=== PATIENT | male | born 1960 | race Caucasian/White ===

== ENCOUNTER 2021-08-26 10:31 | Inpatient (IN) ==
[2021-08-26] MEDS ORDERED: VANCOMYCIN INJ 1,500 MG in SODIUM CHLORIDE 0.9% 250 ML IV STA (11:08)
[2021-08-26] MEDS ORDERED: MEROPENEM 1,000 MG in SODIUM CHLORIDE 0.9% 100 ML IV STA (11:08)
[2021-08-26] MEDS ORDERED: VANCOMYCIN INJ 1,500 MG in SODIUM CHLORIDE 0.9% 500 ML IV STA (11:44)
[2021-08-26 11:48] LABS: Basophils # 0.1 10*3/uL (0.0-0.2); Basophils % 0.4 % (0.0-0.8); Eosinophils # 0.1 10*3/uL (0.0-0.87); Eosinophils % 0.2 % (0.00-10.9); Hematocrit 41.8 VOL% (42.0-52.0); Hemoglobin 14.1 GM/DL (14.0-18.0); Immature Granulocytes % 1.8 %; Immature Granulocytes Absolute 0.47 #; Lymphocytes # 1.9 10*3/uL (1.4-4.0); Lymphocytes % 7.1 % (21.2-54.2); Mean Corpuscular HGB Conc 33.7 GM/DL (32-36); Mean Corpuscular Volume 87.8 FL (87-102); Mean Platelet Volume 10.5 FL (9.6-12.0); Monocytes % 4.2 % (1.7-12.7); Neutrophils % 86.3 % (38.7-73.9); Platelet Count 513 T/CUMM (130-400); Red Blood Count 4.76 MC/CUMM (3.8-5.5); Red Cell Distribution Width 13.2 % (9.3-17.3); White Blood Count 26.1 T/CUMM (4-12)
[2021-08-26 12:07] LABS: Albumin 2.2 G/DL (3.4-5.0); Bilirubin,Total 1.6 MG/DL (0.20-1.00); Calcium 9.5 MG/DL (8.5-10.1); Osmolality,Calculated 266.6 MOS/KG (273-304); Potassium 3.3 MMOL/L (3.5-5.1); Total Protein 8.8 G/DL (6.4-8.2)
[2021-08-26 12:16] LABS: Eosinophils 1 % (0-10); Hypochromasia 1+; Lymphocytes 7 % (20-55); Polychromasia Slight; Reactive Lymphocytes Few; Segmented Neutrophils 88 % (50-85); Total Cells Counted 100
[2021-08-26] MEDS ORDERED: INSULIN LISPRO 100 UNIT/ML SUBCUT STA (12:16)
[2021-08-26 12:17] LABS: Platelet Estimate Increased
[2021-08-26 13:25] LABS: Bilirubin,Urine Negative (Negative); Blood, Urine Negative (Negative); Glucose,Urine (UA) >=500 mg/dL (Negative); Ketones,Urine 20 mg/dL (Negative); Mucus,Urine Occasional /LPF (Occasional); Nitrite,Urine Negative (Negative); Protein,Urine Negative; Urine Appearance CLEAR (Clear); Urine Color Yellow (Yellow); Urine Specific Gravity 1.027 (1.001-1.035)
[2021-08-26] MEDS ORDERED: ONDANSETRON 4 MG/2 ML VIAL IV PRN (13:41)
[2021-08-26] MEDS ORDERED: GLUCAGON 1 MG VIAL IM PRN (13:41)
[2021-08-26] MEDS ORDERED: DEXTROSE 50% 25 GM/50 ML VIAL IV PRN (13:41)
[2021-08-26] MEDS ORDERED: BISACODYL 5 MG TABLET PO PRN (13:41)
[2021-08-26] MEDS ORDERED: ACETAMINOPHEN 325 MG TABLET PO PRN (13:41)
[2021-08-26] MEDS ORDERED: NICOTINE 21 MG/24 HR PATCH TRANSDERM PRN (15:40)
[2021-08-26] MEDS: PIPERACILLIN/TAZOBACTAM 3,375 MG in SODIUM CHLORIDE 0.9% 100 ML IV SCH ×2 (16:08→22:56)
[2021-08-26] MEDS: SODIUM CHLOR 0.9% KCL 40 MEQ 40 MEQ/1,000 ML BAG IV SCH (17:12)
[2021-08-26 17:28] LABS: Hepatitis B Core IgM Quant 0.09 Index; Hepatitis B Surface Ag Quant < 0.10 Index; Hepatitis B Surface Ag Result Non-Reactive (NonReactive); Hepatitis C Virus Ab Quant 1.79 Index
[2021-08-26] MEDS ORDERED: POTASSIUM CHLORIDE 20 MEQ TABLET PO STA (19:52)
[2021-08-26] MEDS ORDERED: MAGNESIUM SULF RIDER 2 GM/50 ML PREMIX IV ONE (19:53)
[2021-08-26] MEDS ORDERED: INSULIN GLARGINE 100 UNIT/ML SUBCUT SCH (21:00)
[2021-08-26] MEDS: INSULIN GLARGINE 100 UNIT/ML SUBCUT SCH (22:01)
[2021-08-27] MEDS: PIPERACILLIN/TAZOBACTAM 3,375 MG in SODIUM CHLORIDE 0.9% 100 ML IV SCH ×3 (05:43→22:21)
[2021-08-27 06:03] LABS: Basophils # 0.1 10*3/uL (0.0-0.2); Basophils % 0.2 % (0.0-0.8); Eosinophils # 0.1 10*3/uL (0.0-0.87); Eosinophils % 0.3 % (0.00-10.9); Hematocrit 32.5 VOL% (42.0-52.0); Immature Granulocytes % 1.7 %; Immature Granulocytes Absolute 0.47 #; Lymphocytes # 2.5 10*3/uL (1.4-4.0); Lymphocytes % 8.8 % (21.2-54.2); Mean Corpuscular HGB Conc 33.8 GM/DL (32-36); Mean Corpuscular Volume 89.3 FL (87-102); Mean Platelet Volume 10.5 FL (9.6-12.0); Monocytes % 5.7 % (1.7-12.7); Neutrophils % 83.3 % (38.7-73.9); Platelet Count 515 T/CUMM (130-400); Red Blood Count 3.64 MC/CUMM (3.8-5.5); Red Cell Distribution Width 13.3 % (9.3-17.3); White Blood Count 28.2 T/CUMM (4-12)
[2021-08-27 06:33] LABS: Calcium 8.4 MG/DL (8.5-10.1); Osmolality,Calculated 267.9 MOS/KG (273-304); Potassium 3.4 MMOL/L (3.5-5.1)
[2021-08-27 06:37] LABS: Band Neutrophils 9 % (0-10); Hypochromasia 1+; Lymphocytes 9 % (20-55); Segmented Neutrophils 78 % (50-85); Total Cells Counted 100
[2021-08-27 06:38] LABS: Microcytosis Slight; Polychromasia Slight
[2021-08-27] MEDS: SODIUM CHLOR 0.9% KCL 40 MEQ 40 MEQ/1,000 ML BAG IV SCH ×3 (06:38→13:18)
[2021-08-27] MEDS ORDERED: LACTATED RINGERS 1,000 ML IV SCH (09:30)
[2021-08-27] MEDS ORDERED: ONDANSETRON 4 MG/2 ML VIAL ONE (09:33)
[2021-08-27] MEDS ORDERED: LIDOCAINE 2% 5 ML VIAL ONE (09:33)
[2021-08-27] MEDS ORDERED: METOCLOPRAMIDE 10 MG/2 ML VIAL ONE (09:33)
[2021-08-27] MEDS ORDERED: propofoL 200 MG/20 ML VIAL IV ONE (09:33)
[2021-08-27] MEDS: PANTOPRAZOLE 40 MG TABLET PO SCH (09:54)
[2021-08-27] MEDS: SODIUM HYPOCHLORITE 0.25% IRRIG 473 ML BOTTLE TOP SCH (09:55)
[2021-08-27] MEDS ORDERED: KETOROLAC 30 MG/1 ML VIAL ONE (09:57)
[2021-08-27] MEDS ORDERED: HYDROmorphone 2 MG/1 ML VIAL ONE (09:58)
[2021-08-27] MEDS ORDERED: CALCIUM CHLORIDE 1,000 MG/10 ML VIAL IV ONE (10:17)
[2021-08-27] MEDS ORDERED: SEVOFLURANE 1 UNIT/15 MINUTE INH ONE (10:17)
[2021-08-27] MEDS ORDERED: LACTATED RINGERS 1,000 ML IV ONE (10:27)
[2021-08-27 10:41] LABS: HIV Antigen/Antibody Result Nonreactive (Nonreactive)
[2021-08-27] MEDS ORDERED: PROMETHAZINE INJ 25 MG in SODIUM CHLORIDE 0.9% 50 ML IV PRN (10:53)
[2021-08-27] MEDS ORDERED: ONDANSETRON 4 MG/2 ML VIAL IV PRN (10:53)
[2021-08-27] MEDS ORDERED: HYDROmorphone 2 MG/1 ML VIAL IV PRN (10:53)
[2021-08-27] MEDS ORDERED: MEPERIDINE 25 MG/1 ML VIAL IV PRN (10:53)
[2021-08-27] MEDS ORDERED: diphenhydrAMINE 50 MG/1 ML VIAL IV PRN (10:53)
[2021-08-27] MEDS: INSULIN GLARGINE 100 UNIT/ML SUBCUT SCH (21:03)
[2021-08-28] MEDS: SODIUM CHLOR 0.9% KCL 40 MEQ 40 MEQ/1,000 ML BAG IV SCH ×4 (05:23→23:48)
[2021-08-28] MEDS: PIPERACILLIN/TAZOBACTAM 3,375 MG in SODIUM CHLORIDE 0.9% 100 ML IV SCH ×3 (05:50→21:34)
[2021-08-28 06:19] LABS: Basophils # 0.1 10*3/uL (0.0-0.2); Basophils % 0.3 % (0.0-0.8); Eosinophils # 0.2 10*3/uL (0.0-0.87); Hematocrit 34.3 VOL% (42.0-52.0); Hemoglobin 11.3 GM/DL (14.0-18.0); Immature Granulocytes % 1.9 %; Immature Granulocytes Absolute 0.33 #; Lymphocytes # 2.4 10*3/uL (1.4-4.0); Lymphocytes % 14.3 % (21.2-54.2); Mean Corpuscular HGB Conc 32.9 GM/DL (32-36); Mean Corpuscular Volume 90.7 FL (87-102); Monocytes % 4.6 % (1.7-12.7); NRBC # 0.02 10*3/uL; Neutrophils % 77.9 % (38.7-73.9); Platelet Count 532 T/CUMM (130-400); Red Blood Count 3.78 MC/CUMM (3.8-5.5); Red Cell Distribution Width 13.9 % (9.3-17.3)
[2021-08-28 06:39] LABS: Albumin 1.5 G/DL (3.4-5.0); Osmolality,Calculated 276.2 MOS/KG (273-304); Potassium 3.7 MMOL/L (3.5-5.1); Total Protein 6.6 G/DL (6.4-8.2)
[2021-08-28] MEDS: PANTOPRAZOLE 40 MG TABLET PO SCH (08:13)
[2021-08-28] MEDS: SODIUM HYPOCHLORITE 0.25% IRRIG 473 ML BOTTLE TOP SCH (08:14)
[2021-08-28] MEDS: HYDROmorphone 2 MG/1 ML VIAL IV PRN ×3 (09:57→23:48)
[2021-08-28] MEDS: INSULIN LISPRO 100 UNIT/ML SUBCUT SCH ×3 (12:01→20:23)
[2021-08-28] MEDS: INSULIN GLARGINE 100 UNIT/ML SUBCUT SCH (20:22)
[2021-08-29] MEDS: HYDROmorphone 2 MG/1 ML VIAL IV PRN ×4 (04:58→20:46)
[2021-08-29] MEDS: PIPERACILLIN/TAZOBACTAM 3,375 MG in SODIUM CHLORIDE 0.9% 100 ML IV SCH ×2 (05:42→14:22)
[2021-08-29 06:53] LABS: Basophils # 0.1 10*3/uL (0.0-0.2); Basophils % 0.4 % (0.0-0.8); Eosinophils # 0.2 10*3/uL (0.0-0.87); Hematocrit 33.8 VOL% (42.0-52.0); Hemoglobin 10.9 GM/DL (14.0-18.0); Immature Granulocytes % 1.5 %; Immature Granulocytes Absolute 0.28 #; Lymphocytes # 3.1 10*3/uL (1.4-4.0); Mean Corpuscular HGB Conc 32.2 GM/DL (32-36); Mean Corpuscular Volume 93.1 FL (87-102); Mean Platelet Volume 10.5 FL (9.6-12.0); Monocytes % 4.9 % (1.7-12.7); NRBC # 0.02 10*3/uL; Neutrophils % 75.2 % (38.7-73.9); Platelet Count 536 T/CUMM (130-400); Red Blood Count 3.63 MC/CUMM (3.8-5.5); Red Cell Distribution Width 14.4 % (9.3-17.3); White Blood Count 18.3 T/CUMM (4-12)
[2021-08-29 07:13] LABS: Albumin 1.5 G/DL (3.4-5.0); Calcium 8.3 MG/DL (8.5-10.1); Osmolality,Calculated 263.4 MOS/KG (273-304); Potassium 4.2 MMOL/L (3.5-5.1); Total Protein 6.8 G/DL (6.4-8.2)
[2021-08-29 07:19] LABS: Hypochromasia 1+; Platelet Estimate Increased
[2021-08-29] MEDS: SODIUM CHLOR 0.9% KCL 40 MEQ 40 MEQ/1,000 ML BAG IV SCH ×3 (08:52→22:55)
[2021-08-29] MEDS: PANTOPRAZOLE 40 MG TABLET PO SCH (08:52)
[2021-08-29] MEDS: SODIUM HYPOCHLORITE 0.25% IRRIG 473 ML BOTTLE TOP SCH (08:53)
[2021-08-29] MEDS: INSULIN LISPRO 100 UNIT/ML SUBCUT SCH ×4 (08:53→20:46)
[2021-08-29] MEDS: KETOROLAC 30 MG/1 ML VIAL IV PRN (11:53)
[2021-08-29] MEDS: cefTRIAXone 1,000 MG in SODIUM CHLORIDE 0.9% 100 ML IV SCH (15:08)
[2021-08-29] MEDS: POLYETHYLENE GLYCOL POWDER 17 GM PACK PO SCH (20:41)
[2021-08-29] MEDS: DOCUSATE SODIUM 100 MG CAPSULE PO SCH (20:42)
[2021-08-29] MEDS: SENNA 8.6 MG TABLET PO SCH (20:42)
[2021-08-29] MEDS: INSULIN GLARGINE 100 UNIT/ML SUBCUT SCH (20:43)
[2021-08-30] MEDS: KETOROLAC 30 MG/1 ML VIAL IV PRN ×2 (02:12→15:24)
[2021-08-30] MEDS: HYDROmorphone 2 MG/1 ML VIAL IV PRN ×4 (03:35→20:46)
[2021-08-30 06:13] LABS: Basophils # 0.1 10*3/uL (0.0-0.2); Basophils % 0.8 % (0.0-0.8); Eosinophils # 0.2 10*3/uL (0.0-0.87); Eosinophils % 1.5 % (0.00-10.9); Hematocrit 31.9 VOL% (42.0-52.0); Hemoglobin 10.5 GM/DL (14.0-18.0); Immature Granulocytes Absolute 0.11 #; Lymphocytes # 2.2 10*3/uL (1.4-4.0); Lymphocytes % 18.6 % (21.2-54.2); Mean Corpuscular HGB Conc 32.9 GM/DL (32-36); Monocytes % 4.7 % (1.7-12.7); Neutrophils % 73.4 % (38.7-73.9); Platelet Count 583 T/CUMM (130-400); Red Blood Count 3.43 MC/CUMM (3.8-5.5); Red Cell Distribution Width 14.6 % (9.3-17.3); White Blood Count 11.6 T/CUMM (4-12)
[2021-08-30 06:33] LABS: Albumin 1.4 G/DL (3.4-5.0); Bilirubin,Total 0.7 MG/DL (0.20-1.00); Calcium 8.3 MG/DL (8.5-10.1); Potassium 4.7 MMOL/L (3.5-5.1); Total Protein 6.3 G/DL (6.4-8.2)
[2021-08-30 06:48] LABS: Atypical Lymphocytes Few; Hypochromasia 1+; Platelet Estimate Increased
[2021-08-30] MEDS ORDERED: LACTATED RINGERS 1,000 ML IV SCH (08:00)
[2021-08-30] MEDS ORDERED: fentaNYL 100 MCG/2 ML VIAL ONE (08:12)
[2021-08-30] MEDS ORDERED: propofoL 200 MG/20 ML VIAL IV ONE (08:12)
[2021-08-30] MEDS ORDERED: MIDAZOLAM 2 MG/2 ML VIAL ONE (08:12)
[2021-08-30] MEDS ORDERED: LIDOCAINE 2% 5 ML VIAL ONE (08:12)
[2021-08-30] MEDS ORDERED: LIDOCAINE 1% 20 ML VIAL ONE (08:20)
[2021-08-30] MEDS ORDERED: BUPIVACAINE MPF 0.25% 30 ML VIAL ONE (08:20)
[2021-08-30] MEDS: INSULIN LISPRO 100 UNIT/ML SUBCUT SCH ×4 (08:35→20:54)
[2021-08-30] MEDS ORDERED: PHENYLEPHRINE 1 MG/10 ML SYRINGE IV ONE (08:37)
[2021-08-30] MEDS ORDERED: SEVOFLURANE 1 UNIT/15 MINUTE INH ONE (08:38)
[2021-08-30] MEDS ORDERED: ONDANSETRON 4 MG/2 ML VIAL ONE (08:38)
[2021-08-30] MEDS ORDERED: HYDROmorphone 2 MG/1 ML VIAL IV PRN (09:24)
[2021-08-30] MEDS ORDERED: ONDANSETRON 4 MG/2 ML VIAL IV PRN (09:24)
[2021-08-30] MEDS: PANTOPRAZOLE 40 MG TABLET PO SCH (11:15)
[2021-08-30] MEDS: POLYETHYLENE GLYCOL POWDER 17 GM PACK PO SCH ×3 (11:15→21:06)
[2021-08-30] MEDS: DOCUSATE SODIUM 100 MG CAPSULE PO SCH ×2 (11:15→20:53)
[2021-08-30] MEDS: metroNIDAZOLE INJ 500 MG/100 ML PREMIX IV SCH ×2 (11:15→17:16)
[2021-08-30] MEDS: SODIUM HYPOCHLORITE 0.25% IRRIG 473 ML BOTTLE TOP SCH (11:22)
[2021-08-30] MEDS: cefTRIAXone 1,000 MG in SODIUM CHLORIDE 0.9% 100 ML IV SCH (15:24)
[2021-08-30] MEDS: SODIUM CHLOR 0.9% KCL 40 MEQ 40 MEQ/1,000 ML BAG IV SCH ×3 (20:49→21:53)
[2021-08-30] MEDS: SENNA 8.6 MG TABLET PO SCH (20:53)
[2021-08-30] MEDS: LACTULOSE 20 GM/30 ML UDCUP PO SCH ×2 (20:53→21:05)
[2021-08-30] MEDS: INSULIN GLARGINE 100 UNIT/ML SUBCUT SCH (20:54)
[2021-08-31] MEDS: KETOROLAC 30 MG/1 ML VIAL IV PRN ×2 (00:36→06:10)
[2021-08-31] MEDS: metroNIDAZOLE INJ 500 MG/100 ML PREMIX IV SCH ×3 (00:44→16:21)
[2021-08-31] MEDS: HYDROmorphone 2 MG/1 ML VIAL IV PRN ×5 (03:54→20:50)
[2021-08-31 05:51] LABS: Basophils % 0.3 % (0.0-0.8); Eosinophils # 0.2 10*3/uL (0.0-0.87); Eosinophils % 1.9 % (0.00-10.9); Hematocrit 35.1 VOL% (42.0-52.0); Hemoglobin 11.6 GM/DL (14.0-18.0); Immature Granulocytes Absolute 0.12 #; Lymphocytes # 2.3 10*3/uL (1.4-4.0); Lymphocytes % 20.2 % (21.2-54.2); Mean Corpuscular Volume 93.4 FL (87-102); Mean Platelet Volume 9.7 FL (9.6-12.0); Monocytes % 6.1 % (1.7-12.7); Neutrophils % 70.5 % (38.7-73.9); Platelet Count 645 T/CUMM (130-400); Red Blood Count 3.76 MC/CUMM (3.8-5.5); Red Cell Distribution Width 14.6 % (9.3-17.3); White Blood Count 11.6 T/CUMM (4-12)
[2021-08-31] MEDS: SODIUM CHLOR 0.9% KCL 40 MEQ 40 MEQ/1,000 ML BAG IV SCH ×3 (06:11→18:01)
[2021-08-31 06:21] LABS: Albumin 1.3 G/DL (3.4-5.0); Bilirubin,Total 0.7 MG/DL (0.20-1.00); Calcium 7.8 MG/DL (8.5-10.1); Osmolality,Calculated 270.1 MOS/KG (273-304); Potassium 4.7 MMOL/L (3.5-5.1); Total Protein 6.5 G/DL (6.4-8.2)
[2021-08-31] MEDS: PANTOPRAZOLE 40 MG TABLET PO SCH (08:41)
[2021-08-31] MEDS: LACTULOSE 20 GM/30 ML UDCUP PO SCH ×2 (08:41→21:14)
[2021-08-31] MEDS: DOCUSATE SODIUM 100 MG CAPSULE PO SCH ×2 (08:41→20:48)
[2021-08-31] MEDS: INSULIN LISPRO 100 UNIT/ML SUBCUT SCH ×4 (08:42→20:48)
[2021-08-31] MEDS: POLYETHYLENE GLYCOL POWDER 17 GM PACK PO SCH ×2 (08:42→21:14)
[2021-08-31] MEDS: SODIUM HYPOCHLORITE 0.25% IRRIG 473 ML BOTTLE TOP SCH (08:42)
[2021-08-31] MEDS: LINACLOTIDE 145 MCG CAPSULE PO SCH (08:42)
[2021-08-31 14:44] LABS: Basophils % 0.2 % (0.0-0.8); Eosinophils # 0.2 10*3/uL (0.0-0.87); Eosinophils % 1.8 % (0.00-10.9); Hematocrit 37.5 VOL% (42.0-52.0); Hemoglobin 11.6 GM/DL (14.0-18.0); Immature Granulocytes Absolute 0.12 #; Lymphocytes # 2.2 10*3/uL (1.4-4.0); Lymphocytes % 17.7 % (21.2-54.2); Mean Corpuscular HGB Conc 30.9 GM/DL (32-36); Mean Corpuscular Volume 96.9 FL (87-102); Mean Platelet Volume 11.1 FL (9.6-12.0); Monocytes % 5.5 % (1.7-12.7); Neutrophils % 73.8 % (38.7-73.9); Platelet Count 518 T/CUMM (130-400); Red Blood Count 3.87 MC/CUMM (3.8-5.5); White Blood Count 12.3 T/CUMM (4-12)
[2021-08-31] MEDS: cefTRIAXone 1,000 MG in SODIUM CHLORIDE 0.9% 100 ML IV SCH (15:46)
[2021-08-31] MEDS: SENNA 8.6 MG TABLET PO SCH (20:47)
[2021-08-31] MEDS: ZALEPLON 5 MG CAPSULE PO PRN (20:47)
[2021-08-31] MEDS: INSULIN GLARGINE 100 UNIT/ML SUBCUT SCH (20:48)
[2021-09-01] MEDS: metroNIDAZOLE INJ 500 MG/100 ML PREMIX IV SCH ×3 (00:39→16:56)
[2021-09-01] MEDS: HYDROmorphone 2 MG/1 ML VIAL IV PRN ×7 (00:47→20:23)
[2021-09-01] MEDS: SODIUM CHLOR 0.9% KCL 40 MEQ 40 MEQ/1,000 ML BAG IV SCH ×2 (00:49→07:56)
[2021-09-01 06:36] LABS: Calcium 8.5 MG/DL (8.5-10.1); Osmolality,Calculated 264.7 MOS/KG (273-304); Potassium 5.2 MMOL/L (3.5-5.1)
[2021-09-01 06:46] LABS: Hematocrit 37.7 VOL% (42.0-52.0); Hemoglobin 11.8 GM/DL (14.0-18.0)
[2021-09-01] MEDS: INSULIN LISPRO 100 UNIT/ML SUBCUT SCH ×4 (08:02→21:13)
[2021-09-01] MEDS: LINACLOTIDE 145 MCG CAPSULE PO SCH (08:03)
[2021-09-01] MEDS: SODIUM HYPOCHLORITE 0.25% IRRIG 473 ML BOTTLE TOP SCH (08:03)
[2021-09-01] MEDS: DOCUSATE SODIUM 100 MG CAPSULE PO SCH ×2 (08:03→21:35)
[2021-09-01] MEDS: LACTULOSE 20 GM/30 ML UDCUP PO SCH ×2 (08:03→21:35)
[2021-09-01] MEDS: PANTOPRAZOLE 40 MG TABLET PO SCH (08:03)
[2021-09-01] MEDS: SODIUM CHLORIDE 0.9% 1,000 ML IV SCH ×2 (08:03→23:41)
[2021-09-01] MEDS: POLYETHYLENE GLYCOL POWDER 17 GM PACK PO SCH ×2 (08:04→21:35)
[2021-09-01] MEDS: cefTRIAXone 1,000 MG in SODIUM CHLORIDE 0.9% 100 ML IV SCH (14:44)
[2021-09-01] MEDS: ZALEPLON 5 MG CAPSULE PO PRN (21:13)
[2021-09-01] MEDS: INSULIN GLARGINE 100 UNIT/ML SUBCUT SCH (21:13)
[2021-09-01] MEDS: SENNA 8.6 MG TABLET PO SCH (21:14)
[2021-09-02] MEDS: metroNIDAZOLE INJ 500 MG/100 ML PREMIX IV SCH ×3 (00:59→16:55)
[2021-09-02] MEDS: HYDROmorphone 2 MG/1 ML VIAL IV PRN ×5 (02:36→21:28)
[2021-09-02 05:43] LABS: Basophils # 0.1 10*3/uL (0.0-0.2); Basophils % 0.6 % (0.0-0.8); Eosinophils # 0.2 10*3/uL (0.0-0.87); Eosinophils % 1.6 % (0.00-10.9); Hematocrit 35.1 VOL% (42.0-52.0); Hemoglobin 11.1 GM/DL (14.0-18.0); Immature Granulocytes % 0.4 %; Immature Granulocytes Absolute 0.04 #; Lymphocytes # 2.5 10*3/uL (1.4-4.0); Lymphocytes % 25.5 % (21.2-54.2); Mean Corpuscular HGB Conc 31.6 GM/DL (32-36); Mean Corpuscular Volume 93.6 FL (87-102); Mean Platelet Volume 9.6 FL (9.6-12.0); Monocytes % 7.8 % (1.7-12.7); Neutrophils % 64.1 % (38.7-73.9); Platelet Count 774 T/CUMM (130-400); Red Blood Count 3.75 MC/CUMM (3.8-5.5); Red Cell Distribution Width 14.7 % (9.3-17.3); White Blood Count 9.7 T/CUMM (4-12)
[2021-09-02 06:04] LABS: Calcium 8.7 MG/DL (8.5-10.1); Osmolality,Calculated 267.4 MOS/KG (273-304); Potassium 4.3 MMOL/L (3.5-5.1)
[2021-09-02 06:16] LABS: Eosinophils 2 % (0-10); Lymphocytes 28 % (20-55); Platelet Estimate Increased; Segmented Neutrophils 65 % (50-85); Total Cells Counted 100
[2021-09-02 06:17] LABS: Hypochromasia Slight; Microcytosis Slight
[2021-09-02] MEDS: LINACLOTIDE 145 MCG CAPSULE PO SCH (07:46)
[2021-09-02] MEDS: INSULIN LISPRO 100 UNIT/ML SUBCUT SCH ×4 (07:46→22:45)
[2021-09-02] MEDS: SODIUM HYPOCHLORITE 0.25% IRRIG 473 ML BOTTLE TOP SCH (09:14)
[2021-09-02] MEDS: LACTULOSE 20 GM/30 ML UDCUP PO SCH ×2 (09:14→21:33)
[2021-09-02] MEDS: POLYETHYLENE GLYCOL POWDER 17 GM PACK PO SCH ×2 (09:14→21:33)
[2021-09-02] MEDS: DOCUSATE SODIUM 100 MG CAPSULE PO SCH ×2 (09:14→21:33)
[2021-09-02] MEDS: PANTOPRAZOLE 40 MG TABLET PO SCH (09:14)
[2021-09-02] MEDS: SODIUM CHLORIDE 0.9% 1,000 ML IV SCH (15:00)
[2021-09-02] MEDS: cefTRIAXone 1,000 MG in SODIUM CHLORIDE 0.9% 100 ML IV SCH (15:28)
[2021-09-02] MEDS: SENNA 8.6 MG TABLET PO SCH (21:28)
[2021-09-02] MEDS: INSULIN GLARGINE 100 UNIT/ML SUBCUT SCH (22:46)
[2021-09-03] MEDS: HYDROmorphone 2 MG/1 ML VIAL IV PRN ×7 (01:52→21:39)
[2021-09-03] MEDS: metroNIDAZOLE INJ 500 MG/100 ML PREMIX IV SCH ×3 (01:52→17:59)
[2021-09-03] MEDS: SODIUM CHLORIDE 0.9% 1,000 ML IV SCH ×3 (02:03→17:00)
[2021-09-03] MEDS: LINACLOTIDE 145 MCG CAPSULE PO SCH (07:34)
[2021-09-03] MEDS: INSULIN LISPRO 100 UNIT/ML SUBCUT SCH ×4 (07:34→21:39)
[2021-09-03] MEDS: POLYETHYLENE GLYCOL POWDER 17 GM PACK PO SCH ×2 (08:37→20:21)
[2021-09-03] MEDS: LACTULOSE 20 GM/30 ML UDCUP PO SCH ×2 (08:37→20:20)
[2021-09-03] MEDS: DOCUSATE SODIUM 100 MG CAPSULE PO SCH ×2 (08:37→20:20)
[2021-09-03] MEDS: PANTOPRAZOLE 40 MG TABLET PO SCH (08:37)
[2021-09-03] MEDS: SODIUM HYPOCHLORITE 0.25% IRRIG 473 ML BOTTLE TOP SCH (08:37)
[2021-09-03] MEDS ORDERED: LIDOCAINE 1% 20 ML VIAL ONE (08:42)
[2021-09-03] MEDS ORDERED: fentaNYL 100 MCG/2 ML VIAL ONE (08:51)
[2021-09-03] MEDS ORDERED: LIDOCAINE 2% 5 ML VIAL ONE (08:51)
[2021-09-03] MEDS ORDERED: ONDANSETRON 4 MG/2 ML VIAL ONE ×2 (08:51→10:16)
[2021-09-03] MEDS ORDERED: MIDAZOLAM 2 MG/2 ML VIAL ONE (08:51)
[2021-09-03] MEDS ORDERED: propofoL 200 MG/20 ML VIAL IV ONE (08:51)
[2021-09-03] MEDS ORDERED: ePHEDrine 50 MG/ML VIAL ONE (09:37)
[2021-09-03] MEDS ORDERED: SEVOFLURANE 1 UNIT/15 MINUTE INH ONE (09:50)
[2021-09-03] MEDS ORDERED: ONDANSETRON 4 MG/2 ML VIAL IV PRN (10:14)
[2021-09-03] MEDS ORDERED: HYDROmorphone 2 MG/1 ML VIAL ONE (10:16)
[2021-09-03] MEDS: cefTRIAXone 1,000 MG in SODIUM CHLORIDE 0.9% 100 ML IV SCH (15:35)
[2021-09-03] MEDS: SENNA 8.6 MG TABLET PO SCH (20:16)
[2021-09-03] MEDS: INSULIN GLARGINE 100 UNIT/ML SUBCUT SCH (21:40)
[2021-09-04] MEDS: HYDROmorphone 2 MG/1 ML VIAL IV PRN ×4 (01:22→19:51)
[2021-09-04] MEDS: metroNIDAZOLE INJ 500 MG/100 ML PREMIX IV SCH ×3 (01:47→16:33)
[2021-09-04 04:29] LABS: Basophils # 0.1 10*3/uL (0.0-0.2); Basophils % 0.5 % (0.0-0.8); Eosinophils # 0.2 10*3/uL (0.0-0.87); Eosinophils % 1.8 % (0.00-10.9); Hematocrit 32.4 VOL% (42.0-52.0); Hemoglobin 10.3 GM/DL (14.0-18.0); Immature Granulocytes % 0.3 %; Immature Granulocytes Absolute 0.03 #; Lymphocytes # 3.1 10*3/uL (1.4-4.0); Lymphocytes % 32.6 % (21.2-54.2); Mean Corpuscular HGB Conc 31.8 GM/DL (32-36); Mean Corpuscular Volume 94.5 FL (87-102); Mean Platelet Volume 9.6 FL (9.6-12.0); Monocytes % 9.5 % (1.7-12.7); Neutrophils % 55.3 % (38.7-73.9); Platelet Count 743 T/CUMM (130-400); Red Blood Count 3.43 MC/CUMM (3.8-5.5); Red Cell Distribution Width 14.9 % (9.3-17.3); White Blood Count 9.4 T/CUMM (4-12)
[2021-09-04 04:45] LABS: Calcium 8.5 MG/DL (8.5-10.1); Osmolality,Calculated 267.4 MOS/KG (273-304); Potassium 4.1 MMOL/L (3.5-5.1)
[2021-09-04 04:57] LABS: Hypochromasia Slight; Microcytosis Slight; Platelet Estimate Increased
[2021-09-04] MEDS: SODIUM CHLORIDE 0.9% 1,000 ML IV SCH ×3 (05:28→15:49)
[2021-09-04] MEDS: LINACLOTIDE 145 MCG CAPSULE PO SCH (08:44)
[2021-09-04] MEDS: INSULIN LISPRO 100 UNIT/ML SUBCUT SCH ×4 (08:44→20:40)
[2021-09-04] MEDS: POLYETHYLENE GLYCOL POWDER 17 GM PACK PO SCH ×2 (08:45→20:37)
[2021-09-04] MEDS: SODIUM HYPOCHLORITE 0.25% IRRIG 473 ML BOTTLE TOP SCH (08:45)
[2021-09-04] MEDS: DOCUSATE SODIUM 100 MG CAPSULE PO SCH ×2 (08:45→20:40)
[2021-09-04] MEDS: PANTOPRAZOLE 40 MG TABLET PO SCH (08:45)
[2021-09-04] MEDS: LACTULOSE 20 GM/30 ML UDCUP PO SCH ×2 (08:45→20:39)
[2021-09-04] MEDS: cefTRIAXone 1,000 MG in SODIUM CHLORIDE 0.9% 100 ML IV SCH (15:09)
[2021-09-04] MEDS: ZALEPLON 5 MG CAPSULE PO PRN (20:39)
[2021-09-04] MEDS: SENNA 8.6 MG TABLET PO SCH (20:40)
[2021-09-04] MEDS: INSULIN GLARGINE 100 UNIT/ML SUBCUT SCH (20:41)
[2021-09-05] MEDS: metroNIDAZOLE INJ 500 MG/100 ML PREMIX IV SCH ×3 (00:32→16:31)
[2021-09-05] MEDS: HYDROmorphone 2 MG/1 ML VIAL IV PRN ×3 (00:32→12:36)
[2021-09-05] MEDS: LINACLOTIDE 145 MCG CAPSULE PO SCH (07:54)
[2021-09-05] MEDS: PANTOPRAZOLE 40 MG TABLET PO SCH (08:28)
[2021-09-05] MEDS: INSULIN LISPRO 100 UNIT/ML SUBCUT SCH ×4 (08:29→20:31)
[2021-09-05] MEDS: SODIUM CHLORIDE 0.9% 1,000 ML IV SCH ×2 (08:29→18:08)
[2021-09-05] MEDS: LACTULOSE 20 GM/30 ML UDCUP PO SCH ×2 (09:37→21:29)
[2021-09-05] MEDS: DOCUSATE SODIUM 100 MG CAPSULE PO SCH ×2 (09:37→20:31)
[2021-09-05] MEDS: POLYETHYLENE GLYCOL POWDER 17 GM PACK PO SCH ×2 (09:38→20:31)
[2021-09-05] MEDS: SODIUM HYPOCHLORITE 0.25% IRRIG 473 ML BOTTLE TOP SCH (11:47)
[2021-09-05] MEDS: oxyCODONE/ACETAMINOPHEN 5-325 MG TABLET PO PRN ×2 (13:15→20:32)
[2021-09-05] MEDS ORDERED: KETOROLAC 15 MG/1 ML VIAL IM PRN (14:59)
[2021-09-05] MEDS: cefTRIAXone 1,000 MG in SODIUM CHLORIDE 0.9% 100 ML IV SCH (15:14)
[2021-09-05] MEDS: KETOROLAC 15 MG/1 ML VIAL IV PRN (18:08)
[2021-09-05] MEDS: ZALEPLON 5 MG CAPSULE PO PRN (20:32)
[2021-09-05] MEDS: SENNA 8.6 MG TABLET PO SCH (20:32)
[2021-09-05] MEDS ORDERED: INSULIN GLARGINE 100 UNIT/ML SUBCUT SCH (21:00)
[2021-09-06] MEDS: metroNIDAZOLE INJ 500 MG/100 ML PREMIX IV SCH ×3 (00:40→16:05)
[2021-09-06] MEDS: oxyCODONE/ACETAMINOPHEN 5-325 MG TABLET PO PRN ×3 (01:27→14:10)
[2021-09-06] MEDS: KETOROLAC 15 MG/1 ML VIAL IV PRN ×2 (04:30→14:11)
[2021-09-06 07:21] LABS: Basophils # 0.1 10*3/uL (0.0-0.2); Basophils % 1.3 % (0.0-0.8); Eosinophils # 0.2 10*3/uL (0.0-0.87); Eosinophils % 2.5 % (0.00-10.9); Hematocrit 32.8 VOL% (42.0-52.0); Hemoglobin 10.3 GM/DL (14.0-18.0); Immature Granulocytes % 0.1 %; Immature Granulocytes Absolute 0.01 #; Lymphocytes # 2.8 10*3/uL (1.4-4.0); Lymphocytes % 37.5 % (21.2-54.2); Mean Corpuscular HGB Conc 31.4 GM/DL (32-36); Mean Corpuscular Volume 93.4 FL (87-102); Mean Platelet Volume 9.8 FL (9.6-12.0); Monocytes % 10.4 % (1.7-12.7); Neutrophils % 48.2 % (38.7-73.9); Platelet Count 772 T/CUMM (130-400); Red Blood Count 3.51 MC/CUMM (3.8-5.5); Red Cell Distribution Width 14.8 % (9.3-17.3); White Blood Count 7.5 T/CUMM (4-12)
[2021-09-06 07:44] LABS: Platelet Estimate Increased
[2021-09-06 07:51] LABS: Calcium 8.6 MG/DL (8.5-10.1); Osmolality,Calculated 268.4 MOS/KG (273-304); Potassium 4.1 MMOL/L (3.5-5.1)
[2021-09-06] MEDS: INSULIN LISPRO 100 UNIT/ML SUBCUT SCH ×3 (08:13→16:05)
[2021-09-06] MEDS: PANTOPRAZOLE 40 MG TABLET PO SCH (08:13)
[2021-09-06] MEDS: DOCUSATE SODIUM 100 MG CAPSULE PO SCH (08:13)
[2021-09-06] MEDS: POLYETHYLENE GLYCOL POWDER 17 GM PACK PO SCH (08:14)
[2021-09-06] MEDS: SODIUM HYPOCHLORITE 0.25% IRRIG 473 ML BOTTLE TOP SCH (08:14)
[2021-09-06] MEDS: LINACLOTIDE 145 MCG CAPSULE PO SCH (08:18)
[2021-09-06] MEDS: HYDROmorphone 2 MG/1 ML VIAL IV PRN (10:23)
[2021-09-06] MEDS: LACTULOSE 20 GM/30 ML UDCUP PO SCH (11:19)
[2021-09-06] MEDS: cefTRIAXone 1,000 MG in SODIUM CHLORIDE 0.9% 100 ML IV SCH (14:09)
[2021-09-06] MEDS: SODIUM CHLORIDE 0.9% 1,000 ML IV SCH (15:39)
[2021-09-06 16:16] VITALS: BP 140/66
== END 2021-09-06 17:23 | disposition home or self-care (01) | DRG 240 ==
LOC: EDBD → EDUNIT# → N.ED 10:31 → SUATTDRO 14:31 → N.EDINP 14:31 → N.3E 20:21
PROVIDERS: ADMIT Hospitalist; ATTEND Internal Medicine

== ENCOUNTER 2022-04-01 19:17 | Inpatient (IN) ==
[2022-04-01] MEDS ORDERED: SODIUM CHLORIDE 0.9% 1,000 ML IV STA ×2 (19:48→21:42)
[2022-04-01] MEDS ORDERED: PIPERACILLIN/TAZOBACTAM 3,375 MG in SODIUM CHLORIDE 0.9% 100 ML IV STA (19:50)
[2022-04-01 21:03] LABS: Basophils # 0.1 10*3/uL (0.0-0.2); Basophils % 0.3 % (0.0-0.8); Eosinophils % 0.1 % (0.00-10.9); Hematocrit 32.4 VOL% (42.0-52.0); Hemoglobin 10.4 GM/DL (14.0-18.0); Immature Granulocytes % 0.9 %; Immature Granulocytes Absolute 0.17 #; Lymphocytes # 1.7 10*3/uL (1.4-4.0); Lymphocytes % 8.6 % (21.2-54.2); Mean Corpuscular HGB Conc 32.1 GM/DL (32-36); Mean Corpuscular Volume 83.7 FL (87-102); Mean Platelet Volume 10.3 FL (9.6-12.0); Monocytes # 1.1 10*3/uL (0.11-0.8); Monocytes % 5.8 % (1.7-12.7); Neutrophils % 84.3 % (38.7-73.9); Platelet Count 565 T/CUMM (130-400); Red Blood Count 3.87 MC/CUMM (3.8-5.5); Red Cell Distribution Width 14.6 % (9.3-17.3); White Blood Count 19.3 T/CUMM (4-12)
[2022-04-01 21:26] LABS: Alanine Aminotransferase 27 U/L (16-61); Albumin 1.6 G/DL (3.4-5.0); Alkaline Phosphatase 109 U/L (45-117); Aspartate Amino Transferase 34 U/L (0-37); Blood Urea Nitrogen 8 MG/DL (7-18); Calcium 8.1 MG/DL (8.5-10.1); Carbon Dioxide 26 MMOL/L (21-32); Chloride 94 MMOL/L (98-107); Glucose 322 MG/DL (74-106); Osmolality,Calculated 267.9 MOS/KG (273-304); Potassium 3.7 MMOL/L (3.5-5.1); Sodium 129 MMOL/L (136-145); Total Protein 7.9 G/DL (6.4-8.2)
[2022-04-02] MEDS ORDERED: GLUCAGON 1 MG VIAL IM PRN (00:57)
[2022-04-02] MEDS ORDERED: ONDANSETRON 4 MG/2 ML VIAL IV PRN ×2 (01:00→12:39)
[2022-04-02] MEDS ORDERED: ACETAMINOPHEN 325 MG TABLET PO PRN (01:00)
[2022-04-02] MEDS ORDERED: hydrALAZINE 20 MG/1 ML VIAL IV PRN (01:00)
[2022-04-02] MEDS ORDERED: DEXTROSE 10% 250 ML BAG IV PRN (01:10)
[2022-04-02] MEDS: ENOXAPARIN 40 MG/0.4 ML SYRINGE SUBCUT SCH (02:18)
[2022-04-02] MEDS ORDERED: MORPHINE 2 MG/1 ML SYRINGE IV PRN (02:36)
[2022-04-02] MEDS ORDERED: VANCOMYCIN INJ 1,250 MG in SODIUM CHLORIDE 0.9% 250 ML IV SCH (03:00)
[2022-04-02] MEDS ORDERED: VANCOMYCIN INJ 2,000 MG in SODIUM CHLORIDE 0.9% 500 ML IV ONE (05:00)
[2022-04-02 05:30] LABS: Basophils # 0.1 10*3/uL (0.0-0.2); Basophils % 0.3 % (0.0-0.8); Eosinophils # 0.1 10*3/uL (0.0-0.87); Eosinophils % 0.3 % (0.00-10.9); Hemoglobin 9.7 GM/DL (14.0-18.0); Immature Granulocytes Absolute 0.21 #; Lymphocytes # 3.4 10*3/uL (1.4-4.0); Lymphocytes % 16.7 % (21.2-54.2); Mean Corpuscular HGB Conc 31.3 GM/DL (32-36); Mean Corpuscular Volume 84.9 FL (87-102); Mean Platelet Volume 10.9 FL (9.6-12.0); Monocytes # 1.3 10*3/uL (0.11-0.8); Monocytes % 6.3 % (1.7-12.7); Neutrophils % 75.4 % (38.7-73.9); Platelet Count 390 T/CUMM (130-400); Red Blood Count 3.65 MC/CUMM (3.8-5.5); Red Cell Distribution Width 14.7 % (9.3-17.3); White Blood Count 20.3 T/CUMM (4-12)
[2022-04-02 05:44] LABS: INR 1.1; PT Patient Result 12.2 SECS (10.5-12.0); Partial Thromboplastin Time 28.4 SECS (23.8-32.1)
[2022-04-02 05:45] LABS: Calcium 8.5 MG/DL (8.5-10.1); Osmolality,Calculated 270.7 MOS/KG (273-304); Potassium 3.8 MMOL/L (3.5-5.1)
[2022-04-02 05:55] LABS: Lymphocytes 15 % (20-55); Nucleated Red Blood Cells 1 (0-5); Total Cells Counted 100
[2022-04-02 05:56] LABS: Platelet Estimate Adequate
[2022-04-02 06:32] LABS: Mucus,Urine Moderate /LPF (Occasional); RBC,Urine 6 /HPF (0-4); Squamous Epithelial Cell,Urine Occasional /HPF (0-10)
[2022-04-02 06:33] LABS: Bilirubin,Urine Small mg/dL (Negative); Blood, Urine Small mg/dL (Negative); Glucose,Urine (UA) >1000 mg/dL (Negative); Ketones,Urine 15 mg/dL (Negative); Nitrite,Urine Negative (Negative); Protein,Urine 30 mg/dL (Negative); Urine Appearance Clear (Clear); Urine Color Dark Yellow (Yellow); Urine Specific Gravity > 1.030 (1.001-1.035); Urine pH 5.5 (4.5-8.0)
[2022-04-02] MEDS: INSULIN REGULAR 100 UNIT/ML SUBCUT SCH ×4 (08:52→20:23)
[2022-04-02] MEDS: PIPERACILLIN/TAZOBACTAM 3,375 MG in SODIUM CHLORIDE 0.9% 100 ML IV SCH ×2 (09:00→18:08)
[2022-04-02] MEDS ORDERED: ROCURONIUM 50 MG/5 ML VIAL IV ONE (10:49)
[2022-04-02] MEDS ORDERED: fentaNYL 100 MCG/2 ML VIAL ONE (10:49)
[2022-04-02] MEDS ORDERED: propofoL 200 MG/20 ML VIAL IV ONE (10:49)
[2022-04-02] MEDS ORDERED: LIDOCAINE 2% 5 ML VIAL ONE (10:49)
[2022-04-02] MEDS ORDERED: MIDAZOLAM 2 MG/2 ML VIAL ONE (10:49)
[2022-04-02] MEDS ORDERED: SUCCINYLCHOLINE 200 MG/10 ML VIAL ONE (10:52)
[2022-04-02] MEDS: PANTOPRAZOLE 40 MG TABLET PO SCH (11:25)
[2022-04-02] MEDS ORDERED: LACTATED RINGERS 1,000 ML IV SCH (11:30)
[2022-04-02] MEDS ORDERED: ePHEDrine 50 MG/ML VIAL ONE (12:02)
[2022-04-02] MEDS ORDERED: PHENYLEPHRINE 1 MG/10 ML SYRINGE IV ONE (12:17)
[2022-04-02] MEDS ORDERED: ONDANSETRON 4 MG/2 ML VIAL ONE (12:20)
[2022-04-02] MEDS ORDERED: SEVOFLURANE 1 UNIT/15 MINUTE INH ONE (12:25)
[2022-04-02] MEDS ORDERED: LACTATED RINGERS 1,000 ML IV ONE (12:29)
[2022-04-02] MEDS ORDERED: HYDROmorphone 1 MG/1 ML SYRINGE ONE ×2 (12:39→12:52)
[2022-04-02] MEDS: HYDROmorphone 1 MG/1 ML SYRINGE IV PRN ×4 (12:41→12:58)
[2022-04-02] MEDS ORDERED: DEXTROSE 50% 25 GM/50 ML VIAL IV PRN (15:43)
[2022-04-02] MEDS: VANCOMYCIN INJ 1,250 MG in SODIUM CHLORIDE 0.9% 250 ML IV SCH (16:29)
[2022-04-02] MEDS: INSULIN GLARGINE 100 UNIT/ML SUBCUT SCH (20:23)
[2022-04-03] MEDS: PIPERACILLIN/TAZOBACTAM 3,375 MG in SODIUM CHLORIDE 0.9% 100 ML IV SCH ×3 (00:34→18:41)
[2022-04-03] MEDS: VANCOMYCIN INJ 1,250 MG in SODIUM CHLORIDE 0.9% 250 ML IV SCH ×2 (05:02→17:21)
[2022-04-03 05:18] LABS: Basophils % 0.3 % (0.0-0.8); Eosinophils # 0.3 10*3/uL (0.0-0.87); Eosinophils % 2.5 % (0.00-10.9); Hematocrit 28.9 VOL% (42.0-52.0); Hemoglobin 8.9 GM/DL (14.0-18.0); Immature Granulocytes Absolute 0.11 #; Lymphocytes # 2.1 10*3/uL (1.4-4.0); Lymphocytes % 19.1 % (21.2-54.2); Mean Corpuscular HGB Conc 30.8 GM/DL (32-36); Mean Corpuscular Volume 86.3 FL (87-102); Monocytes # 0.5 10*3/uL (0.11-0.8); Monocytes % 4.9 % (1.7-12.7); Neutrophils % 72.2 % (38.7-73.9); Platelet Count 349 T/CUMM (130-400); Red Blood Count 3.35 MC/CUMM (3.8-5.5); Red Cell Distribution Width 14.7 % (9.3-17.3); White Blood Count 10.9 T/CUMM (4-12)
[2022-04-03 05:34] LABS: Calcium 8.4 MG/DL (8.5-10.1); Osmolality,Calculated 279.2 MOS/KG (273-304); Potassium 4.1 MMOL/L (3.5-5.1)
[2022-04-03] MEDS: PANTOPRAZOLE 40 MG TABLET PO SCH (08:34)
[2022-04-03] MEDS: INSULIN REGULAR 100 UNIT/ML SUBCUT SCH ×4 (08:34→21:05)
[2022-04-03 11:44] LABS: Folate 8.61 NG/ML (5.38-24.0); Vitamin B12 343 PG/ML (211-911)
[2022-04-03 12:42] LABS: Basophils % 0.3 % (0.0-0.8); Eosinophils # 0.2 10*3/uL (0.0-0.87); Eosinophils % 1.7 % (0.00-10.9); Hematocrit 29.2 VOL% (42.0-52.0); Hemoglobin 9.1 GM/DL (14.0-18.0); Immature Granulocytes % 1.2 %; Immature Granulocytes Absolute 0.13 #; Lymphocytes # 1.7 10*3/uL (1.4-4.0); Lymphocytes % 15.8 % (21.2-54.2); Mean Corpuscular HGB Conc 31.2 GM/DL (32-36); Mean Corpuscular Volume 85.9 FL (87-102); Mean Platelet Volume 10.5 FL (9.6-12.0); Monocytes # 0.6 10*3/uL (0.11-0.8); Monocytes % 5.6 % (1.7-12.7); Neutrophils % 75.4 % (38.7-73.9); Platelet Count 560 T/CUMM (130-400); Red Cell Distribution Width 14.9 % (9.3-17.3); White Blood Count 10.4 T/CUMM (4-12)
[2022-04-03 13:09] LABS: Band Neutrophils 1 % (0-10); Eosinophils 3 % (0-10); Hypochromia Slight; Lymphocytes 22 % (20-55); Metamyelocytes 1 %; Target Cells Slight; Total Cells Counted 100
[2022-04-03 13:10] LABS: Atypical Lymphocytes Few
[2022-04-03] MEDS: SODIUM HYPOCHLORITE 0.25% IRRIG 473 ML BOTTLE TOP SCH (13:43)
[2022-04-03] MEDS: HYDROmorphone 1 MG/1 ML SYRINGE IV PRN ×3 (14:43→21:42)
[2022-04-03] MEDS ORDERED: ZINC OXIDE PASTE 113 GM TUBE TOP PRN (15:37)
[2022-04-03 18:42] LABS: Sedimentation Rate-Westergren 116 MM/HR (0-20)
[2022-04-03] MEDS: INSULIN GLARGINE 100 UNIT/ML SUBCUT SCH (21:05)
[2022-04-04] MEDS: HYDROmorphone 1 MG/1 ML SYRINGE IV PRN ×12 (00:01→22:07)
[2022-04-04] MEDS: PIPERACILLIN/TAZOBACTAM 3,375 MG in SODIUM CHLORIDE 0.9% 100 ML IV SCH ×3 (00:28→16:57)
[2022-04-04] MEDS: VANCOMYCIN INJ 1,250 MG in SODIUM CHLORIDE 0.9% 250 ML IV SCH ×2 (05:13→16:57)
[2022-04-04 05:39] LABS: Basophils % 0.2 % (0.0-0.8); Eosinophils # 0.2 10*3/uL (0.0-0.87); Eosinophils % 1.9 % (0.00-10.9); Hematocrit 31.2 VOL% (42.0-52.0); Hemoglobin 9.7 GM/DL (14.0-18.0); Immature Granulocytes Absolute 0.13 #; Lymphocytes % 15.4 % (21.2-54.2); Mean Corpuscular HGB Conc 31.1 GM/DL (32-36); Mean Corpuscular Volume 87.2 FL (87-102); Monocytes # 0.6 10*3/uL (0.11-0.8); Monocytes % 4.6 % (1.7-12.7); Neutrophils % 76.9 % (38.7-73.9); Platelet Count 294 T/CUMM (130-400); Red Blood Count 3.58 MC/CUMM (3.8-5.5); White Blood Count 12.9 T/CUMM (4-12)
[2022-04-04 06:04] LABS: Calcium 8.8 MG/DL (8.5-10.1); Osmolality,Calculated 273.8 MOS/KG (273-304); Potassium 3.8 MMOL/L (3.5-5.1)
[2022-04-04] MEDS: LACTATED RINGERS 1,000 ML IV SCH ×2 (07:19→09:23)
[2022-04-04] MEDS: INSULIN REGULAR 100 UNIT/ML SUBCUT SCH ×4 (07:30→21:08)
[2022-04-04] MEDS ORDERED: fentaNYL 100 MCG/2 ML VIAL ONE (07:41)
[2022-04-04] MEDS ORDERED: LIDOCAINE 2% 5 ML VIAL ONE (07:41)
[2022-04-04] MEDS ORDERED: propofoL 200 MG/20 ML VIAL IV ONE (07:41)
[2022-04-04] MEDS ORDERED: SEVOFLURANE 1 UNIT/15 MINUTE INH ONE ×4 (07:41→08:52)
[2022-04-04] MEDS ORDERED: MIDAZOLAM 2 MG/2 ML VIAL ONE ×2 (07:41→07:42)
[2022-04-04] MEDS ORDERED: PHENYLEPHRINE 1 MG/10 ML SYRINGE IV ONE (08:11)
[2022-04-04] MEDS ORDERED: ONDANSETRON 4 MG/2 ML VIAL ONE (08:36)
[2022-04-04] MEDS ORDERED: ONDANSETRON 4 MG/2 ML VIAL IV PRN (09:19)
[2022-04-04] MEDS ORDERED: MEPERIDINE 25 MG/1 ML VIAL IV PRN (09:47)
[2022-04-04] MEDS: PANTOPRAZOLE 40 MG TABLET PO SCH (11:16)
[2022-04-04] MEDS: SODIUM HYPOCHLORITE 0.25% IRRIG 473 ML BOTTLE TOP SCH (11:16)
[2022-04-04] MEDS: GABAPENTIN 100 MG CAPSULE PO SCH ×2 (14:15→21:12)
[2022-04-04] MEDS: INSULIN GLARGINE 100 UNIT/ML SUBCUT SCH (21:08)
[2022-04-05] MEDS: HYDROmorphone 1 MG/1 ML SYRINGE IV PRN ×6 (00:41→19:35)
[2022-04-05] MEDS: PIPERACILLIN/TAZOBACTAM 3,375 MG in SODIUM CHLORIDE 0.9% 100 ML IV SCH ×2 (00:44→08:43)
[2022-04-05] MEDS: VANCOMYCIN INJ 1,250 MG in SODIUM CHLORIDE 0.9% 250 ML IV SCH ×4 (00:45→23:00)
[2022-04-05 05:44] LABS: Basophils % 0.3 % (0.0-0.8); Eosinophils # 0.3 10*3/uL (0.0-0.87); Eosinophils % 2.1 % (0.00-10.9); Hematocrit 27.8 VOL% (42.0-52.0); Hemoglobin 8.4 GM/DL (14.0-18.0); Immature Granulocytes % 0.8 %; Immature Granulocytes Absolute 0.12 #; Lymphocytes # 2.4 10*3/uL (1.4-4.0); Lymphocytes % 16.2 % (21.2-54.2); Mean Corpuscular HGB Conc 30.2 GM/DL (32-36); Mean Corpuscular Volume 87.7 FL (87-102); Mean Platelet Volume 10.3 FL (9.6-12.0); Monocytes # 0.9 10*3/uL (0.11-0.8); Monocytes % 5.9 % (1.7-12.7); Neutrophils % 74.7 % (38.7-73.9); Platelet Count 446 T/CUMM (130-400); Red Blood Count 3.17 MC/CUMM (3.8-5.5); Red Cell Distribution Width 15.5 % (9.3-17.3); White Blood Count 14.7 T/CUMM (4-12)
[2022-04-05 06:00] LABS: Calcium 8.3 MG/DL (8.5-10.1); Osmolality,Calculated 276.7 MOS/KG (273-304); Potassium 4.1 MMOL/L (3.5-5.1)
[2022-04-05] MEDS ORDERED: KETOROLAC 30 MG/1 ML VIAL IV ONE (08:13)
[2022-04-05] MEDS: INSULIN REGULAR 100 UNIT/ML SUBCUT SCH ×4 (08:36→21:35)
[2022-04-05] MEDS: PANTOPRAZOLE 40 MG TABLET PO SCH (08:36)
[2022-04-05] MEDS: GABAPENTIN 100 MG CAPSULE PO SCH ×2 (08:36→21:35)
[2022-04-05] MEDS: SODIUM HYPOCHLORITE 0.25% IRRIG 473 ML BOTTLE TOP SCH (08:44)
[2022-04-05] MEDS ORDERED: BISACODYL 5 MG TABLET PO ONE (11:04)
[2022-04-05] MEDS: LINACLOTIDE 145 MCG CAPSULE PO SCH (12:02)
[2022-04-05] MEDS ORDERED: KETOROLAC 15 MG/1 ML VIAL IV SCH (15:00)
[2022-04-05] MEDS: KETOROLAC 15 MG/1 ML VIAL IV PRN ×2 (16:38→23:15)
[2022-04-05] MEDS: INSULIN GLARGINE 100 UNIT/ML SUBCUT SCH (21:35)
[2022-04-06] MEDS: HYDROmorphone 1 MG/1 ML SYRINGE IV PRN ×4 (03:25→22:35)
[2022-04-06 06:00] LABS: Basophils % 0.3 % (0.0-0.8); Eosinophils # 0.5 10*3/uL (0.0-0.87); Eosinophils % 3.4 % (0.00-10.9); Hematocrit 28.5 VOL% (42.0-52.0); Hemoglobin 8.7 GM/DL (14.0-18.0); Immature Granulocytes % 0.8 %; Immature Granulocytes Absolute 0.11 #; Lymphocytes # 2.7 10*3/uL (1.4-4.0); Lymphocytes % 20.2 % (21.2-54.2); Mean Corpuscular HGB Conc 30.5 GM/DL (32-36); Mean Corpuscular Volume 88.8 FL (87-102); Mean Platelet Volume 10.2 FL (9.6-12.0); Monocytes % 7.7 % (1.7-12.7); Neutrophils % 67.6 % (38.7-73.9); Platelet Count 640 T/CUMM (130-400); Red Blood Count 3.21 MC/CUMM (3.8-5.5); Red Cell Distribution Width 15.9 % (9.3-17.3); White Blood Count 13.2 T/CUMM (4-12)
[2022-04-06 06:10] LABS: Calcium 8.4 MG/DL (8.5-10.1); Osmolality,Calculated 284.3 MOS/KG (273-304)
[2022-04-06] MEDS: KETOROLAC 15 MG/1 ML VIAL IV PRN ×2 (06:10→17:08)
[2022-04-06] MEDS: LINACLOTIDE 145 MCG CAPSULE PO SCH (09:07)
[2022-04-06] MEDS: INSULIN REGULAR 100 UNIT/ML SUBCUT SCH ×4 (09:07→22:16)
[2022-04-06] MEDS: GABAPENTIN 100 MG CAPSULE PO SCH ×2 (09:07→21:20)
[2022-04-06] MEDS: PANTOPRAZOLE 40 MG TABLET PO SCH (09:07)
[2022-04-06] MEDS: ENOXAPARIN 40 MG/0.4 ML SYRINGE SUBCUT SCH (09:07)
[2022-04-06] MEDS: SODIUM HYPOCHLORITE 0.25% IRRIG 473 ML BOTTLE TOP SCH (09:08)
[2022-04-06] MEDS ORDERED: BISACODYL 5 MG TABLET PO ONE (10:59)
[2022-04-06 11:33] LABS: Anisocytosis 1+; Platelet Estimate Increased; Stomatocytes Slight
[2022-04-06] MEDS: INSULIN LISPRO 100 UNIT/ML SUBCUT SCH ×2 (17:09→22:14)
[2022-04-06] MEDS: INSULIN GLARGINE 100 UNIT/ML SUBCUT SCH (21:20)
[2022-04-07] MEDS: KETOROLAC 15 MG/1 ML VIAL IV PRN ×2 (02:40→20:00)
[2022-04-07 05:41] LABS: Basophils % 0.3 % (0.0-0.8); Eosinophils # 0.4 10*3/uL (0.0-0.87); Eosinophils % 3.4 % (0.00-10.9); Hematocrit 26.2 VOL% (42.0-52.0); Hemoglobin 8.1 GM/DL (14.0-18.0); Immature Granulocytes % 0.6 %; Immature Granulocytes Absolute 0.06 #; Lymphocytes # 2.7 10*3/uL (1.4-4.0); Lymphocytes % 25.1 % (21.2-54.2); Mean Corpuscular HGB Conc 30.9 GM/DL (32-36); Mean Corpuscular Volume 87.9 FL (87-102); Mean Platelet Volume 9.8 FL (9.6-12.0); Monocytes # 0.8 10*3/uL (0.11-0.8); Monocytes % 7.5 % (1.7-12.7); Neutrophils % 63.1 % (38.7-73.9); Platelet Count 843 T/CUMM (130-400); Red Blood Count 2.98 MC/CUMM (3.8-5.5); Red Cell Distribution Width 16.2 % (9.3-17.3); White Blood Count 10.8 T/CUMM (4-12)
[2022-04-07 05:55] LABS: Calcium 8.2 MG/DL (8.5-10.1); Osmolality,Calculated 278.7 MOS/KG (273-304); Potassium 3.9 MMOL/L (3.5-5.1)
[2022-04-07 06:19] LABS: Target Cells Few
[2022-04-07] MEDS: INSULIN LISPRO 100 UNIT/ML SUBCUT SCH ×4 (09:20→21:56)
[2022-04-07] MEDS: LINACLOTIDE 145 MCG CAPSULE PO SCH (09:20)
[2022-04-07] MEDS: PANTOPRAZOLE 40 MG TABLET PO SCH (09:21)
[2022-04-07] MEDS: GABAPENTIN 100 MG CAPSULE PO SCH ×2 (09:21→20:00)
[2022-04-07] MEDS: SODIUM HYPOCHLORITE 0.25% IRRIG 473 ML BOTTLE TOP SCH (09:21)
[2022-04-07] MEDS: ENOXAPARIN 40 MG/0.4 ML SYRINGE SUBCUT SCH (09:21)
[2022-04-07 09:28] LABS: Hemoglobin A1 (Alkaline) 98.3 % (96.5-98.5); Hemoglobin A2 (Alkaline) 1.7 % (1.5-3.5)
[2022-04-07] MEDS: INSULIN REGULAR 100 UNIT/ML SUBCUT SCH (09:32)
[2022-04-07] MEDS: HYDROmorphone 1 MG/1 ML SYRINGE IV PRN ×3 (11:45→23:45)
[2022-04-07] MEDS: POLYETHYLENE GLYCOL POWDER 17 GM PACK PO SCH (16:42)
[2022-04-07] MEDS: INSULIN GLARGINE 100 UNIT/ML SUBCUT SCH (21:30)
[2022-04-08] MEDS: KETOROLAC 15 MG/1 ML VIAL IV PRN ×3 (02:25→15:40)
[2022-04-08] MEDS: HYDROmorphone 1 MG/1 ML SYRINGE IV PRN ×3 (04:55→17:52)
[2022-04-08 06:03] LABS: Basophils # 0.1 10*3/uL (0.0-0.2); Basophils % 0.5 % (0.0-0.8); Eosinophils # 0.4 10*3/uL (0.0-0.87); Hematocrit 27.3 VOL% (42.0-52.0); Hemoglobin 8.3 GM/DL (14.0-18.0); Immature Granulocytes % 0.4 %; Immature Granulocytes Absolute 0.04 #; Lymphocytes # 3.2 10*3/uL (1.4-4.0); Lymphocytes % 34.2 % (21.2-54.2); Mean Corpuscular HGB Conc 30.4 GM/DL (32-36); Mean Corpuscular Volume 88.1 FL (87-102); Mean Platelet Volume 10.1 FL (9.6-12.0); Monocytes # 0.8 10*3/uL (0.11-0.8); Monocytes % 8.4 % (1.7-12.7); Neutrophils % 52.5 % (38.7-73.9); Platelet Count 733 T/CUMM (130-400); Red Cell Distribution Width 16.9 % (9.3-17.3); White Blood Count 9.3 T/CUMM (4-12)
[2022-04-08 06:21] LABS: Alanine Aminotransferase 15 U/L (16-61); Albumin 1.5 G/DL (3.4-5.0); Alkaline Phosphatase 87 U/L (45-117); Aspartate Amino Transferase 15 U/L (0-37); Bilirubin,Total < 0.39 MG/DL (0.20-1.00); Blood Urea Nitrogen 13 MG/DL (7-18); Calcium 8.5 MG/DL (8.5-10.1); Carbon Dioxide 31 MMOL/L (21-32); Chloride 106 MMOL/L (98-107); Glucose 124 MG/DL (74-106); Osmolality,Calculated 279.4 MOS/KG (273-304); Sodium 140 MMOL/L (136-145); Total Protein 6.9 G/DL (6.4-8.2)
[2022-04-08] MEDS: INSULIN LISPRO 100 UNIT/ML SUBCUT SCH ×4 (07:13→20:48)
[2022-04-08] MEDS: PANTOPRAZOLE 40 MG TABLET PO SCH (08:21)
[2022-04-08] MEDS: ENOXAPARIN 40 MG/0.4 ML SYRINGE SUBCUT SCH (08:21)
[2022-04-08] MEDS: LINACLOTIDE 145 MCG CAPSULE PO SCH (08:21)
[2022-04-08] MEDS: POLYETHYLENE GLYCOL POWDER 17 GM PACK PO SCH (08:21)
[2022-04-08] MEDS: GABAPENTIN 100 MG CAPSULE PO SCH ×2 (08:21→20:47)
[2022-04-08] MEDS: SODIUM HYPOCHLORITE 0.25% IRRIG 473 ML BOTTLE TOP SCH (08:21)
[2022-04-08] MEDS: INSULIN GLARGINE 100 UNIT/ML SUBCUT SCH (20:48)
[2022-04-09 05:46] LABS: Alanine Aminotransferase 15 U/L (16-61); Albumin 1.6 G/DL (3.4-5.0); Alkaline Phosphatase 77 U/L (45-117); Aspartate Amino Transferase 17 U/L (0-37); Bilirubin,Total < 0.39 MG/DL (0.20-1.00); Blood Urea Nitrogen 12 MG/DL (7-18); Calcium 9.1 MG/DL (8.5-10.1); Carbon Dioxide 31 MMOL/L (21-32); Chloride 108 MMOL/L (98-107); Glucose 78 MG/DL (74-106); Osmolality,Calculated 277.4 MOS/KG (273-304); Potassium 5.1 MMOL/L (3.5-5.1); Sodium 140 MMOL/L (136-145)
[2022-04-09] MEDS: INSULIN LISPRO 100 UNIT/ML SUBCUT SCH ×4 (08:42→21:32)
[2022-04-09] MEDS: POLYETHYLENE GLYCOL POWDER 17 GM PACK PO SCH (10:19)
[2022-04-09] MEDS: ENOXAPARIN 40 MG/0.4 ML SYRINGE SUBCUT SCH (10:19)
[2022-04-09] MEDS: LINACLOTIDE 145 MCG CAPSULE PO SCH (10:19)
[2022-04-09] MEDS: PANTOPRAZOLE 40 MG TABLET PO SCH (10:20)
[2022-04-09] MEDS: GABAPENTIN 100 MG CAPSULE PO SCH ×2 (10:20→21:29)
[2022-04-09] MEDS: SODIUM HYPOCHLORITE 0.25% IRRIG 473 ML BOTTLE TOP SCH (12:30)
[2022-04-09] MEDS: HYDROmorphone 1 MG/1 ML SYRINGE IV PRN (15:22)
[2022-04-09] MEDS: INSULIN GLARGINE 100 UNIT/ML SUBCUT SCH (21:32)
[2022-04-10] MEDS: HYDROmorphone 1 MG/1 ML SYRINGE IV PRN (02:22)
[2022-04-10 05:40] LABS: Alanine Aminotransferase 15 U/L (16-61); Albumin 1.7 G/DL (3.4-5.0); Alkaline Phosphatase 79 U/L (45-117); Aspartate Amino Transferase 15 U/L (0-37); Bilirubin,Total < 0.39 MG/DL (0.20-1.00); Blood Urea Nitrogen 9 MG/DL (7-18); Calcium 8.9 MG/DL (8.5-10.1); Carbon Dioxide 30 MMOL/L (21-32); Chloride 106 MMOL/L (98-107); Glucose 110 MG/DL (74-106); Osmolality,Calculated 274.7 MOS/KG (273-304); Potassium 4.5 MMOL/L (3.5-5.1); Sodium 138 MMOL/L (136-145)
[2022-04-10] MEDS: INSULIN LISPRO 100 UNIT/ML SUBCUT SCH ×3 (08:03→15:40)
[2022-04-10] MEDS: POLYETHYLENE GLYCOL POWDER 17 GM PACK PO SCH (09:27)
[2022-04-10] MEDS: LINACLOTIDE 145 MCG CAPSULE PO SCH (09:27)
[2022-04-10] MEDS: ENOXAPARIN 40 MG/0.4 ML SYRINGE SUBCUT SCH (09:28)
[2022-04-10] MEDS: GABAPENTIN 100 MG CAPSULE PO SCH (09:28)
[2022-04-10] MEDS: PANTOPRAZOLE 40 MG TABLET PO SCH (09:29)
[2022-04-10] MEDS: SODIUM HYPOCHLORITE 0.25% IRRIG 473 ML BOTTLE TOP SCH (11:35)
[2022-04-10 16:14] VITALS: BP 150/83
== END 2022-04-10 18:40 | disposition home or self-care (01) | DRG 240 ==
LOC: N.ED 19:17 → N.EDINP 04-02 00:57 → SUATTDRO 04-02 00:57 → N.5E 04-02 02:27
PROVIDERS: ADMIT Internal Medicine; ATTEND Family Medicine